=== PATIENT | female | born 1940 | race Caucasian/White ===

== ENCOUNTER 2021-01-13 17:25 | Emergency (ER) | payer MEDICARE, BC ==
[~2021-01-13] VITALS: Ht 149.9 cm; Wt 64.4 kg
[2021-01-13 17:38] VITALS: BP 143/59
--- NOTE | 2021-01-13 17:45 | NUR ---
BIBS FOR C/O ITCHING ON BOTH SIDES OF HER BREASTS. DENIES PAIN. WILL CONTINUE TO MONITOR THE PATIENT.
--- NOTE | 2021-01-13 19:18 | NUR ---
Patient discharged to home in stable condition. Written and verbal after care instructions given. Patient verbalizes understanding of instruction.
== END 2021-01-13 19:18 | disposition home or self-care (01) ==
LOC: ER 17:30
DX: L29.9 Pruritus, unspecified (principal); E03.9 Hypothyroidism, unspecified; Z98.890 Other specified postprocedural states